=== PATIENT | male | born 1950 | race Caucasian/White ===

== ENCOUNTER 2018-02-26 21:22 | Emergency (ER) | payer MEDICARE, BC ==
[2018-02-26] MEDS ORDERED: Morphine VIAL* 4 MG/ML VIAL (1 ml vial) IV ONE (21:35)
[2018-02-26] MEDS ORDERED: Diazepam SYRINGE* 5 MG/ML 2 ML SYRINGE (10 MG total) IV ONE (21:36)
[2018-02-26] MEDS ORDERED: NS 0.9% 1000 ML* 1,000 ML IV ONE (21:36)
[2018-02-26] MEDS ORDERED: Ketorolac INJ* 30 MG/ML 1 ML VIAL IV PUSH ONE (21:36)
--- NOTE | 2018-02-26 21:41 | ED ---
Back Pain - HPI Summary HPI Summary: This patient is a 67 year old M BIBA to ED with a chief complaint of lower back pain since [id number]. The patient was building a cabinet and was trying to flip it over during onset. He reports the pain brought me to my knees. Prior treatment was 3 Aleve. The patient rates the pain 8/10 in severity. Symptoms aggravated by movement of his legs and back. Symptoms alleviated by nothing. PSHx lower back surgery (2009) and neck surgery. - History of Current Complaint Chief Complaint: EDBackInjuryPain Stated Complaint: LOWER BACK PAIN Time Seen by Provider: 02/26/18 21:28 Hx Obtained From: Patient Onset/Duration: Sudden Onset, Lasting Hours, Still Present Onset/Duration: Started Hours Ago, Still Present Timing: Constant, Lasting Hours Back Pain Location: Is Discrete @ - lower back Severity Initially: Severe Severity Currently: Severe Pain Intensity: 8 Pain Scale Used: 0-10 Numeric Aggravating Symptom(s): Movement - of his legs and back Alleviating Symptom(s): Nothing - Allergies/Home Medications Allergies/Adverse Reactions: Allergies Allergy/AdvReac Type Severity Reaction Status Date / Time MS Atorvastatin AdvReac Intermediate See Comment Verified 12/21/16 10:59 [From Lipitor] MS Simvastatin [From Zocor] AdvReac See Comment Verified 12/21/16 10:59 PMH/Surg Hx/FS Hx/Imm Hx Endocrine/Hematology History: Reports: Hx Diabetes Cardiovascular History: Reports: Hx Angina, Hx Coronary Artery Disease, Hx Hypercholesterolemia, Hx Hypertension, Hx Myocardial Infarction - nstemi Denies: Hx Congestive Heart Failure, Hx Valvular Heart Disease Comment Only: Other Cardiovascular Problems/Disorders - QUAD. BYPASS Respiratory History: Denies: Hx Asthma, Hx Chronic Obstructive Pulmonary Disease (COPD) GI History: Reports: Hx Gastroesophageal Reflux Disease, Other GI Disorders - GERD History: Reports: Hx Kidney Stones Denies: Hx Renal Disease Musculoskeletal History: Reports: Hx Back Problems Sensory History: Reports: Hx Contacts or Glasses Opthamlomology History: Reports: Hx Contacts or Glasses Neurological History: Reports: Hx Headaches Psychiatric History: Reports: Hx Anxiety, Hx Depression Denies: Hx Substance Abuse - Surgical History Surgery Procedure, Year, and Place: lumbar 2009,QUAD BYPASS 2008. cervical 1995 , [facility]; right arthro knee. CSPINE Hx Anesthesia Reactions: No Infectious Disease History: No Infectious Disease History: Denies: Traveled Outside the [place] in Last 30 Days - Family History Known Family History: Positive: Cardiac Disease, Hypertension, Diabetes, Other Family History: CA - Social History Alcohol Use: None Substance Use Type: Reports: None Smoking Status (MU): Never Smoked Tobacco Review of Systems Negative: Fever Positive: Other - lower back pain All Other Systems Reviewed And Are Negative: Yes Physical Exam - Summary Physical Exam Summary: VITAL SIGNS: Reviewed. GENERAL: Patient is a well-developed and nourished MALE who is lying comfortable in the stretcher. Patient is not in any acute respiratory distress. The patient is unable to get up due to the back pain. HEAD AND FACE: No signs of trauma. No ecchymosis, hematomas or skull depressions. No sinus tenderness. EYES: PERRLA, EOMI x 2, No injected conjunctiva, no nystagmus. EARS: Hearing grossly intact. Ear canals and tympanic membranes are within normal limits. MOUTH: Oropharynx within normal limits. NECK: Supple, trachea is midline, no adenopathy, no JVD, no carotid bruit, no c- spine tenderness, neck with full ROM. CHEST: Symmetric, no tenderness at palpation LUNGS: Clear to auscultation bilaterally. No wheezing or crackles. CVS: Regular rate and rhythm, S1 and S2 present, no murmurs or gallops appreciated. ABDOMEN: Soft, non-tender. No signs of distention. No rebound no guarding, and no masses palpated. Bowel sounds are normal. EXTREMITIES: No edema, no cyanosis or clubbing. Bilat straight leg test is positive: The right leg is 0 degrees and the left leg is 15 degrees. NEURO: Alert and oriented x 3. No acute neurological deficits. Speech is normal and follows commands. Neuro is intact. SKIN: Dry and warm No urinary sx. Triage Information Reviewed: Yes Vital Signs On Initial Exam: Initial Vitals Temp Pulse Resp BP Pulse Ox 98.0 F 84 18 177/110 94 02/26/18 21:26 02/26/18 21:26 02/26/18 21:26 02/26/18 21:26 02/26/18 21:26 Vital Signs Reviewed: Yes Diagnostics - Vital Signs Vital Signs Temp Pulse Resp BP Pulse Ox 02/26/18 21:26 98.0 F 84 18 177/110 94 - Laboratory Lab Statement: Any lab studies that have been ordered have been reviewed, and results considered in the medical decision making process. - CT L-spine CT CT Interpretation Completed By: Radiologist - No evidence of acute fracture or traumatic malalignment. Grossly stable lumbar spondylosis with discogenic disease and posterior element arthropathy results in multilevel neural foraminal and spinal canal stenoses. Recommend lumbar spine MRI to further characterize if clinically warranted. No lytic or blastic disease identified. Pre and paravertebral soft tissues appear unremarkable. ED physician has reviewed this imaging report. Re-Evaluation - Re-Evaluation First Eval Re-Evaluation Time: 23:15 Comment: The patient is feeling better. Discussed CT results with the patient and plan for discharge. The patient is agreeable with this plan. Back Pain Course/Dx - Course Assessment/Plan: This patient is a 67 year old M BIBA to ED with a chief complaint of lower back pain since [id number]. In the ED course, the patient was given Valium, Toradol, Morhpine, and fluids. No evidence of acute fracture or traumatic malalignment. Grossly stable lumbar spondylosis with discogenic disease and posterior element arthropathy results in multilevel neural foraminal and spinal canal stenoses. Recommend lumbar spine MRI to further characterize if clinically warranted. No lytic or blastic disease identified. Pre and paravertebral soft tissues appear unremarkable. The patient will be discharged. The patient is agreeable with this plan. - Diagnoses Differential Diagnosis/HQI/PQRI: Positive: Other - chronic low back pain Provider Diagnoses: Chronic low back pain Discharge - Sign-Out/Discharge Documenting (check all that apply): Patient Departure - Discharge Plan Condition: Stable Disposition: HOME Patient Education Materials: Chronic Back Pain (ED) Referrals: Lacie Gonzalez MD [Primary Care Provider] - (Please see your primary care physician in 1-2 days.) Additional Instructions: RETURN TO THE EMERGENCY DEPARTMENT FOR CHANGING OR WORSENING SYMPTOMS.
[2018-02-26] MEDS ORDERED: Diazepam INJ (NF) 5 MG/ML 10 ML VIAL (50 MG TOTAL) IV ONE (23:00)
[2018-02-26 23:48] VITALS: BP 168/82
--- NOTE | 2018-02-27 08:24 | RAD ---
HISTORY: Low back pain COMPARISONS: MRI dated February 23, 2010 TECHNIQUE: Multiple contiguous axial CT scans were obtained of the lumbar spine without intravenous contrast, with coronal and sagittal multiplanar reformations. FINDINGS: SPINAL CANAL: Evaluation of the central canal is limited on CT technique; however, there is no obvious canalicular mass or epidural hemorrhage. ALIGNMENT: The alignment is normal. VERTEBRAL BODIES: Laminectomy defects are noted at L4-L5. There is multilevel anterolateral marginal osteophyte formation. There is diffuse osteopenia. JOINTS: There is facet osteoarthritis most pronounced along the lower lumbar spine. MUSCULATURE: Unremarkable INTERVERTEBRAL DISCS: There is diffuse loss of intervertebral disc height throughout the spine. AXIAL IMAGES: T11-T12: There is no osseous neural foraminal narrowing or central canal stenosis. T12-L1: There is no osseous neural foraminal narrowing or central canal stenosis. L1-L2: There is no osseous neural foraminal narrowing or central canal stenosis. L2-L3: There is a broad-based disc bulge with ligamentous hypertrophy.. There is moderate to severe narrowing of the central canal. L3-L4: There is a broad-based disc bulge with ligamentous and facet hypertrophy. There is moderate bilateral neural foraminal narrowing. There is severe narrowing of the central canal. L4-L5: A laminectomy defect is noted. There is bilateral facet hypertrophy. There is marginal osteophyte formation at the neural foramina bilaterally. There is moderate bilateral neuroforaminal narrowing. There is partial effacement of the lateral recesses bilaterally. L5-S1: There is marginal osteophyte formation at the neural foramina bilaterally. Posterior osteophytic ridging. There is mild left and moderate right neural foraminal narrowing. There is mild narrowing of the central canal. SOFT TISSUES: The visualized soft tissues of the abdomen are unremarkable. OTHER: None IMPRESSION: 1. POSTSURGICAL CHANGE. 2. DEGENERATIVE DISC DISEASE AND OSTEOARTHRITIS. 3. THERE IS SEVERE NARROWING OF THE CENTRAL CANAL AT L3-L4 AND TO LESSER EXTENT AT L2-L3. 4. THERE IS MULTILEVEL NEURAL FORAMINAL NARROWING DESCRIBED ABOVE.
== END 2018-02-26 23:47 | disposition home or self-care (01) ==
LOC: ED 21:22
DX: M54.5 Low back pain (principal); Z88.8 Allergy status to other drugs, medicaments and biological substances; E11.9 Type 2 diabetes mellitus without complications; I25.119 Atherosclerotic heart disease of native coronary artery with unspecified angina pectoris; I25.2 Old myocardial infarction; I10 Essential (primary) hypertension; Z95.1 Presence of aortocoronary bypass graft; E78.00 Pure hypercholesterolemia, unspecified; K21.9 Gastro-esophageal reflux disease without esophagitis; Z87.442 Personal history of urinary calculi; F41.9 Anxiety disorder, unspecified; F32.9 Major depressive disorder, single episode, unspecified; Z82.49 Family history of ischemic heart disease and other diseases of the circulatory system; Z83.3 Family history of diabetes mellitus; Z80.9 Family history of malignant neoplasm, unspecified
CPT/HCPCS: 72131; 99283; J1885; J2270; J3360